=== PATIENT | female | born 1965 | race Caucasian/White ===

== ENCOUNTER 2024-08-12 06:24 | Day surgery (SDC) | payer BC, SELFPAY | END 2024-08-12 12:06 | disposition home or self-care (01) | LOC: GI 06:24 | PROVIDERS: ATTENDING PHYSICIAN Specialist | DX: Z12.11 Encounter for screening for malignant neoplasm of colon (principal); D12.2 Benign neoplasm of ascending colon; D12.3 Benign neoplasm of transverse colon; K57.30 Diverticulosis of large intestine without perforation or abscess without bleeding | CPT/HCPCS: 45385; 88305 ==

== ENCOUNTER → 2024-09-30 07:44 | Outpatient (REF) | payer BC, SELFPAY | LOC: RAD 07:44 | PROVIDERS: ATTENDING PHYSICIAN Hospitalist | DX: Z13.820 Encounter for screening for osteoporosis (principal) | CPT/HCPCS: 77080 ==